=== PATIENT | female | born 1935 | race Caucasian/White ===

== ENCOUNTER 2019-08-17 13:38 | Outpatient (CLI) | payer MEDICARE ==
--- NOTE | 2019-08-17 15:03 | ULT ---
ULTRASOUND ABDOMEN: 08/17/19 HISTORY: Abdominal pain and cramping, GE reflux. FINDINGS: There is a 1.9 cm septated cyst in the left lobe of the liver. There are prominent intrahepatic bilia ry ducts. There is sludge in the gallbladder without gallstones, gallbladder wall thickening or peric holecystic fluid. The common duct measures 6 mm in diameter. The kidneys, pancreas, spleen, and visua lized portions of the aorta and IVC are unremarkable. No free fluid is seen. IMPRESSION: 1. 1.9 cm septated left liver lobe cyst. 2. Gallbladder sludge. 3. Prominent intrahepatic biliary ducts. POS: [facility]
== END 2019-08-17 13:39 | disposition home or self-care (01) ==
LOC: SCSULT 13:38
PROVIDERS: ATTEND Nurse Practitioner Family
DX: K21.9 Gastro-esophageal reflux disease without esophagitis (principal); R10.9 Unspecified abdominal pain; K76.89 Other specified diseases of liver; K82.8 Other specified diseases of gallbladder
CPT/HCPCS: 93975